=== PATIENT | female | born 1995 | race Caucasian/White ===

== ENCOUNTER → 2018-12-07 08:16 | Outpatient (CLI) | payer OTHER, MEDICAID, SELFPAY ==
--- NOTE | 2018-12-07 | DI.US.S_ITS ---
PROCEDURE: US OB LIMITED INDICATIONS: EVAULATE AMNIOTIC FLUID INDEX, BORDERLINE OLIGOHYDRAMNIOS OUTSIDE/PRIOR DATING DATA: Last menstrual period (LMP): 06/18/2018. LMP-based estimated date of delivery (GER): 03/25/2019. First dating scan (date and location): 07/29/2018. Estimated date of delivery (GER) from first dating scan: 03/22/2019. TECHNIQUE: Real-time scanning was performed of the fetus, with image documentation and biometric measurements. COMPARISON: None available. FINDINGS: General: A single living intrauterine gestation is present. Presentation: Vertex. Placenta: Placental position is posterior, without previa and 6.6 cm from the internal cervical os. Amniotic fluid index: 12.4 cm, normal range is 5-24 cm. (largest pocket 3.8 cm). heart rate: 130 beats per minute. Maternal cervical canal: 4.4 cm long. Normal lower limit is 2.5 cm. Other: Limited evaluation of structures is unremarkable. IMPRESSION: 1. Powell living intrauterine . 2. Normal placenta and amniotic fluid. SHARMILA 12.4 cm. Dictated by: Carlos Moran M.D. on 12/07/2018 at 9:40 Approved by: Carlos Moran M.D. on 12/07/2018 at 9:48
== END ==
PROVIDERS: Visit Provider Midwife
DX: Z36.2 Encounter for other antenatal screening follow-up (principal); Z3A.25 25 weeks gestation of pregnancy
CPT/HCPCS: 76815